=== PATIENT | male | born 1955 | race Caucasian/White ===

== ENCOUNTER → 2016-05-05 | Outpatient (CLI) | payer BC ==
--- NOTE | 2016-05-05 14:23 | STRESSTEST ---
[facility] [place] Interpretive Statements Patient exercised according to Lucas protocol, baseline EKG showed incomplet RBBB, Baseline BP was 126/84, AK 95, Patient exercised for 6:20 , No chest pain,no shrotnes of breath Maximum BP was 184/86, Maximum heart rate was 150 which is 92% of the predicted, No New EKG changes noted. , Conclusion No New EKG changes Noted. The test is Negative but the patient does have one limitaion which is the baseline RBBB. [email or web address]
== END ==
LOC: RT 13:26
PROVIDERS: ATTEND Obstetrics & Gynecology Gynecology
DX: R94.31 Abnormal electrocardiogram [ECG] [EKG] (principal); I45.19 Other right bundle-branch block
CPT/HCPCS: 93017

== ENCOUNTER 2016-09-17 07:13 | Day surgery (SDC) | payer BC ==
[~2016-09-17 07:13] MED LIST: LIDOCAINE 2% VISCOUS(20 MG/1 ML) - 15 ML UD CUP PO ONE; LIDOCAINE HCL/PF 2% (20 MG/ML) - 5 ML SYRINGE ONE; Lactated Ringers 1,000 ML PRIMARY IV ONE; MIDAZOLAM 5 MG/1 ML ONE; ceFAZolin Inj 2gm (Premix) 50 ML IV ONE; fentaNYL Inj 100 MCG/2 ML VIAL ONE
[2016-09-17] MEDS: LIDOCAINE W/ SODIUM BICARB 0.5 ML SYR ONE (07:35)
--- NOTE | 2016-09-17 08:50 | GEN.OPNOTE ---
EGD / Colonoscopy Report Surgery Date: 09/17/16 Preoperative Diagnosis: GERD. Hemoccult-positive stool. Bright red blood per rectum. Postoperative Diagnosis: Same. Esophagitis. Procedure: #1 esophagogastroduodenoscopy with biopsy. #2 complete colonoscopy. Surgeon: Aneudy Brothers MD Anesthesia Provider: Willam Zhang CRNA Anesthesia Type: MAC Indications: See preoperative diagnosis. EGD Findings: Esophagus: [Normal] GE Junction : [Esophagitis] Fundus : [Normal] Body : [Normal] Prepyloric : [Mild erythema] Small Intestine : [Normal] A lubricated flexible upper endoscope was inserted and passed through the esophagus and stomach into the duodenum. The duodenum and duodenal bulb were unremarkable. The pyloric channel was widely patent. There is some mild erythema in the antrum. Multiple biopsies were taken. Hemostasis was assured. The remainder of the gastric mucosa was unremarkable. The scope was withdrawn into the distal esophagus. There is irregularity and inflammation at the Z line. Multiple biopsies were taken. Hemostasis was assured. The scope was withdrawn through the remainder of a normal-appearing esophagus and brought through the hypopharynx under suction completing the procedure. Colonoscopy Findings: Prep : [Very good] Cecum : [Normal] Ascending : [Normal] Transverse : [Normal] Sigmoid : [Normal] Rectum : [Normal] Digital Rectal Exam : [Internal hemorrhoids. Prostate moderately enlarged but nonnodular.] A lubricated flexible colonoscope was inserted and passed to the blind end of the cecum. The appendiceal orifice and ileocecal valve were seen. Air was aspirated as the scope was withdrawn. The entire colonoscopy was normal without polyp, tumor, neoplastic mass, infectious or inflammatory process. The scope was retroflexed in the rectum. There is some mild internal hemorrhoids. Scope was straightened and withdrawn completing the procedure. The patient tolerated the procedure well without complication. He was taken to outpatient surgery in stable condition. The patient will follow-up with my office on an as-needed basis. We will call the biopsy results and plan therapy and follow-up accordingly. Patient should have a colonoscopy in 10 years time.
[2016-09-17 09:33] VITALS: RESP 15
[2016-09-17 09:47] VITALS: TEMP 97.7
== END 2016-09-17 09:35 | disposition home or self-care (01) ==
LOC: SDSC 07:13
PROVIDERS: ATTEND Surgery
DX: K62.5 Hemorrhage of anus and rectum (principal); R19.5 Other fecal abnormalities; K21.9 Gastro-esophageal reflux disease without esophagitis
CPT/HCPCS: 43239; 45378; J0690; J2704; J3010; J2001; J2250; J7120